=== PATIENT | male | born 1965 | race Caucasian/White ===

== ENCOUNTER 2019-12-03 16:35 | Emergency (ER) | payer OTHER ==
[2019-12-03] MEDS ORDERED: Phenazopyridine 100 MG Tab ONE (17:00)
[2019-12-03] MEDS ORDERED: Nitrofurantoin Macrocrystal 50 MG Cap ONE (17:00)
--- NOTE | 2019-12-03 17:14 | EDM.PDOC ---
ED HPI GENERAL MEDICAL PROBLEM - General Chief Complaint: General Stated Complaint: BLADDER INFECTION Time Seen by Provider: 12/03/19 17:00 Source of Information: Reports: Patient History Limitations: Reports: No Limitations - History of Present Illness INITIAL COMMENTS - FREE TEXT/NARRATIVE: Pt [place] the [place] for past 4 days bouncing around on the [place]. States yesterday he began having lower back pain and felt like he might have had a fever but did not check it. Today states he has had darker than normal urine and a slight burn at end of his urination. No urethral discharge. Has h/o hypertension and thinks he is on Lisinopril but not sure. No nausea or vomiting,no abdominal pain. Onset: Gradual Quality: Reports: Burning Severity: Mild Improves with: Reports: Rest Worsens with: Reports: Movement Associated Symptoms: Reports: No Other Symptoms. Denies: Chest Pain, Cough, Diaphoresis, Fever/Chills, Headaches, Loss of Appetite, Malaise, Nausea/Vomiting, Weakness - Related Data Allergies Allergy/AdvReac Type Severity Reaction Status Date / Time No Known Allergies Allergy Verified 12/03/19 17:27 Home Meds: Home Meds Nitrofurantoin Monohyd/M-Cryst [Macrobid 100 mg Capsule] 100 mg PO BID 7 Days #14 capsule 12/03/19 [Rx] Past Medical History - Past Health History Medical/Surgical History: Denies Medical/Surgical History Social & Family History - Family History Family Medical History: Noncontributory - Tobacco Use Smoking Status *Q: Light Tobacco Smoker Years of Tobacco use: 30 Packs/Tins Daily: 0.5 - Caffeine Use Caffeine Use: Reports: Coffee - Alcohol Use Days Per Week of Alcohol Use: 5 Number of Drinks Per Day: 4 Total Drinks Per Week: 20 - Recreational Drug Use Recreational Drug Use: No ED ROS GENERAL - Review of Systems Review Of Systems: See Below Constitutional: Reports: No Symptoms. Denies: Fever, Chills, Weakness, Fatigue, Diaphoresis HEENT: Reports: No Symptoms Respiratory: Reports: No Symptoms. Denies: Shortness of Breath, Cough Cardiovascular: Reports: No Symptoms. Denies: Chest Pain, Dyspnea on Exertion, Lightheadedness Endocrine: Reports: No Symptoms GI/Abdominal: Denies: Abdominal Pain, Black Stool, Constipation, Diarrhea, Decreased Appetite, Distension, Nausea, Vomiting : Reports: Dysuria, Other (bilateral low back pain). Denies: Frequency, Urg ency Musculoskeletal: Reports: Back Pain, Muscle Pain. Denies: Leg Pain, Foot Pain, Joint Pain, Muscle Stiffness Neurological: Reports: No Symptoms. Denies: Dizziness, Headache, Numbness, Paresthesia Hematologic/Lymphatic: Reports: No Symptoms ED EXAM, GENERAL - Physical Exam Exam: See Below Exam Limited By: No Limitations General Appearance: Alert, WD/WN, No Apparent Distress Nose: Normal Inspection, Normal Mucosa Throat/Mouth: Normal Inspection, Normal Lips, Normal Teeth Head: Atraumatic Neck: Normal Inspection, Supple, Non-Tender, Full Range of Motion Respiratory/Chest: No Respiratory Distress, Lungs Clear, Normal Breath Sounds, No Accessory Muscle Use, Chest Non-Tender Cardiovascular: Normal Peripheral Pulses, No Edema, No Gallop, No Murmur, No Rub, Tachycardia (HR 110) GI/Abdominal: Normal Bowel Sounds, Soft, Non-Tender, No Organomegaly, No Distention Back Exam: Normal Inspection, Full Range of Motion, Paraspinal Tenderness. No: CVA Tenderness (R), CVA Tenderness (L), Vertebral Tenderness Extremities: Normal Inspection, Normal Range of Motion, Non-Tender Neurological: Alert, Oriented, CN II-XII Intact, Normal Cognition, Normal Gait Psychiatric: Normal Affect, Normal Mood Skin Exam: Warm, Dry, Intact Course - Vital Signs Last Recorded V/S: Last Vital Signs Temp 98.6 F 12/03/19 17:08 Pulse 110 H 12/03/19 17:08 Resp 16 12/03/19 17:08 BP 134/84 12/03/19 17:08 Pulse Ox 93 L 12/03/19 17:08 - Orders/Labs/Meds Orders: Active Orders 24 hr Category Date Time Status CULTURE URINE [RM] Stat Lab 12/03/19 16:49 Ordered Labs: Laboratory Tests 12/03/19 Range/Units 17:00 Urine Color Yellow Urine Appearance Cloudy (CLEAR) Urine pH 7.5 (5.0-8.0) Ur Specific [place] 1.020 (1.003-1.030) Urine Protein 30 H (NEGATIVE) mg/dL Urine Glucose (UA) Negative (NEGATIVE) mg/dL Urine Ketones Negative (NEGATIVE) mg/dL Urine Occult Blood Trace-intact H (NEGATIVE) Urine Nitrite Positive H (NEGATIVE) Urine Bilirubin Negative (NEGATIVE) Urine Urobilinogen 0.2 (0.2-1.0) E.U./dL Ur Leukocyte Esterase Moderate H (NEGATIVE) Urine RBC 10-20 H /HPF Urine WBC Packed H /HPF Urine WBC Clumps Many /HPF Ur Squamous Epith Cells Moderate /HPF Urine Bacteria Many H /HPF Meds: Medications Discontinued Medications Generic Name Dose Route Start Last Admin Trade Name Freq PRN Reason Stop Dose Admin Ibuprofen 800 mg 12/03/19 17:19 12/03/19 17:25 Motrin PO 12/03/19 17:20 800 mg ONETIME ONE Administration Ibuprofen Confirm 12/03/19 17:31 Motrin Administered 12/03/19 17:32 Dose 800 mg .ROUTE .STK-MED ONE Nitrofurantoin Macrocrystals Confirm 12/03/19 18:45 Macrodantin Administered 12/03/19 18:46 Dose 100 mg .ROUTE .STK-MED ONE - Re-Assessments/Exams Free Text/Narrative Re-Assessment/Exam: 12/03/19 17:00 urine was sent off awaiting results. Free Text/Narrative Re-Assessment/Exam: 12/03/19 18:38 Lab machine broke and it took a while to repair and get lab results of Mr Ley's urine result. UA c/w UTI Will prescribe Macrobid and Pyridium Pt instructed to follow-up Departure - Departure Time of Disposition: 18:41 Disposition: Home, Self-Care 01 Condition: Good Clinical Impression: UTI (urinary tract infection) - Discharge Information *PRESCRIPTION DRUG MONITORING PROGRAM REVIEWED*: Not Applicable *COPY OF PRESCRIPTION DRUG MONITORING REPORT IN PATIENT WILDER: Not Applicable Prescriptions: Nitrofurantoin Monohyd/M-Cryst [Macrobid 100 mg Capsule] 100 mg PO BID 7 Days #14 capsule Referrals: PCP,None [Primary Care Provider] - Forms: ED Department Discharge Sepsis Event Note (ED) - Focused Exam Vital Signs: Vital Signs Temp Pulse Resp BP Pulse Ox 12/03/19 17:08 98.6 F 110 H 16 134/84 93 L - My Orders Last 24 Hours: My Active Orders 12/03/19 16:49 CULTURE URINE [RM] Stat - Assessment/Plan Last 24 Hours: My Active Orders 12/03/19 16:49 CULTURE URINE [RM] Stat
[2019-12-03] MEDS: Ibuprofen 800 MG Tab PO ONE (17:25)
[2019-12-03] MEDS ORDERED: Ibuprofen 800 MG Tab ONE (17:31)
[2019-12-03] MEDS: Nitrofurantoin Macrocrystal 50 MG Cap ONE (18:49)
== END 2019-12-03 18:56 | disposition home or self-care (01) ==
LOC: LB.ED 16:35
DX: N39.0 Urinary tract infection, site not specified (principal); F17.210 Nicotine dependence, cigarettes, uncomplicated
CPT/HCPCS: 81001; 87086; 87088; 99283; A9270-GY